=== PATIENT | male | born 1985 | race Caucasian/White ===

== ENCOUNTER 2021-07-11 15:39 | Emergency (ER) | payer OTHER ==
[2021-07-11 16:26] VITALS: BP 171/97; PULSE 79; O2SAT 99
--- NOTE | 2021-07-11 16:59 | XRAY ---
Indication: Calf pain. 2-dimensional sonogram and color Doppler imaging of the major venous vessels of the left leg performed. Comparison: None No thrombus seen in the examined deep venous vessels of the left leg including greater saphenous vein. Veins demonstrate normal compressibility. Venous waveforms are normal with and without augmentation. Impression: Left leg negative for DVT.
--- NOTE | 2021-07-11 17:01 | ERPHSYRPT ---
- History of Present Illness Time Seen by Provider: 07/11/21 16:15 Source: patient Exam Limitations: no limitations Patient Subjective Stated Complaint: PT HERE FOR PAIN TO LOWER LEFT LEG. WENT TO CLINIC TODAY AND GOT BLOOD WORK THAT WAS NORMAL, Triage Nursing Assessment: PT ALERT, WALKED IN , RESP EASY,SIN W/D/P, FACE MASK IN PLACE . SLOM W/D/P Physician History: 36 years old healthy male presented to ER with chief complaint of left leg cramping for the last 2 to 3 days moderate intensity without any significant aggravating or relieving factors, radiating to the right thigh. Denies any fall trauma, difficulty movements hip knee or ankle. No obvious swelling of right calf noticed. No shortness of breath chest pain or palpitations. Patient was seen at [facility] and is sent in here for DVT rule out. No difficulty ambulation. Allergies/Adverse Reactions: cetirizine [From Zyrtec] Allergy (Verified 07/11/21 16:28) loratadine [From Claritin] Allergy (Verified 07/11/21 16:28) metoprolol [From Lopressor] Allergy (Verified 07/11/21 16:28) Home Medications: Escitalopram Oxalate 1 ea DAILY 07/11/21 [History] Hx Tetanus, Diphtheria Vaccination/Date Given: No Hx Influenza Vaccination/Date Given: No Hx Pneumococcal Vaccination/Date Given: No Immunizations Up to Date: Yes Travel Risk - International Travel Have you traveled outside of the country in past 3 weeks: No - Coronavirus Screening Are you exhibiting any of the following symptoms?: No Close contact with a COVID-19 positive Pt in past 14-21 Days: No - Vaccine Status Have you recieved a Covid-19 vaccination: No - Review of Systems Constitutional: No Symptoms Ears, Nose, & Throat: No Symptoms Respiratory: No Symptoms Cardiac: No Symptoms Abdominal/Gastrointestinal: No Symptoms Genitourinary Symptoms: No Symptoms Musculoskeletal: Myalgias Skin: No Symptoms Neurological: No Symptoms Psychological: No Symptoms Endocrine: No Symptoms Hematologic/Lymphatic: No Symptoms - Past Medical History Pertinent Past Medical History: Yes Psycho-Social History: Anxiety - Past Surgical History Past Surgical History: Yes - Social History Smoking Status: Never smoker Exposure to second hand smoke: No Drug Use: none Patient Lives Alone: Yes - Nursing Vital Signs Nursing Vital Signs: Initial Vital Signs Temperature 98.3 F 07/11/21 16:11 Pulse Rate 79 07/11/21 16:11 Respiratory Rate 18 07/11/21 16:11 Blood Pressure 171/97 07/11/21 16:11 O2 Sat by Pulse Oximetry 99 07/11/21 16:11 Pain Scale Pain Intensity 5 - Physical Exam General Appearance: no apparent distress Neck Exam: normal inspection, full range of motion Cardiovascular/Respiratory Exam: normal breath sounds, regular rate/rhythm Back Exam: normal inspection, normal range of motion Hips Exam: bilateral: non-tender, normal inspection, normal range of motion, no evidence of injury Legs Exam: right leg: non-tender, left leg: pain, soft tissue tenderness (Left calf), bilateral leg: normal inspection, normal range of motion, no evidence of injury Knees Exam: bilateral knee: non-tender, normal inspection, normal range of motion, no evidence of injury Ankle Exam: bilateral ankle: non-tender, normal inspection, normal range of motion, no evidence of injury Neuro/Tendon Exam: normal sensation, normal motor functions, normal tendon functions Mental Status Exam: alert, oriented x 3, cooperative Skin Exam: normal color SpO2 Interpretation: normal SpO2: 99 O2 Delivery: Room Air Ordered Tests: Active Orders 24 hr Category Date Time Status VENOUS UNILAT/LIMITED EXTREMIT [US] Stat Exams 07/11/21 16:41 Completed - Progress Progress: unchanged Progress Note: 07/11/21 16:59 Ruled out DVT per ultrasound preliminary report. No bony tenderness needing x- rays. No signs of cellulitis. No signs of compartment syndrome. Recommended Tylenol ibuprofen as needed and outpatient follow-up. Discussed signs symptoms of worsening needing return to ER which he seems understanding. 07/11/21 17:01 Counseled pt/family regarding: diagnosis, need for follow-up, rad results - Departure Clinical Impression: Leg cramp Condition: Stable Critical Care Time: No Referrals: SANTY PERKINS MD [Primary Care Provider] - Follow Up with PCP/3 days Instructions: Deep Vein Thrombosis (Blood Clots in the Legs) (DC) Additional Instructions: Take Tylenol/ibuprofen as needed. Follow-up with primary care for reevaluation. Return to ER for increasing pain or if develop swelling redness, difficulty ambulation etc. If pain persist may need another ultrasound in 1 week time.
== END 2021-07-11 17:10 | disposition home or self-care (01) ==
LOC: ED 15:39
DX: R25.2 Cramp and spasm (principal); M79.662 Pain in left lower leg
CPT/HCPCS: 93971; 99283